=== PATIENT | female | born 1990 | race Caucasian/White ===

== ENCOUNTER 2022-02-15 21:46 | Emergency (ER) | payer OTHER, SELFPAY ==
--- NOTE | ~2022-02-15 | CT_ITS ---
EXAMINATION: CT brain wo con DATE: 02/15/2022 22:24 INDICATION: Head injury TECHNIQUE: Computed tomography (CT) of the head was performed without intravenous contrast. Sagittal and coronal reconstructions were performed. The mA was adjusted according to patient size. Iterative reconstruction technique was employed. The dose-length product was 529.67 mGy-cm. COMPARISON: None FINDINGS: No fracture. No acute intracranial hemorrhage, acute infarction or abnormal extra axial fluid collect ion. Ventricles are normal and symmetric. No mass/mass effect. The orbits, paranasal sinuses and mast oid air cells are normal. IMPRESSION: 1. Normal head CT. Reviewed, dictated and finalized at location A. IMPRESSION: 1. Normal head CT.
[2022-02-15 21:51] VITALS: BP 157/88; PULSE 94; RESP 16; TEMP 36.4; O2SAT 100
--- NOTE | 2022-02-15 21:51 | ED.HA ---
HPI - Headache General Chief Complaint: Headache Stated Complaint: Head injury Tues, h/A and nausea Time Seen by Provider: 02/15/22 21:51 History of Present Illness HPI Narrative: 31-year-old female presents the emergency room with complaints of headache for 3 days. Patient states 4 days ago she struck her head on the edge of shoulder. Did not experience any loss of consciousness, dizziness, headache or nausea at that time. Patient denies any somnolence or dizziness. Patient states on Thursday she developed a headache over her left eye that is photophobic and phonophobic, and is associated with nausea which has since resolved. States her abortive medicine is Excedrin Migraine Related Data Allergies Allergy/AdvReac Type Severity Reaction Status Date / Time No Known Allergies Allergy Verified 02/15/22 21:49 Review of Systems Review of Systems: CONSTITUTIONAL: Denies fever, chills, or sweats. EYES: Denies visual changes, redness, or discharge. ENT: Denies rhinorrhea, congestion, sore throat, or otalgia. CARDIOVASCULAR: Denies chest pain, palpitations, or edema. RESPIRATORY: Denies cough or dyspnea. GASTROINTESTINAL: Denies abdominal pain, nausea, vomiting, or diarrhea. GENITOURINARY: Denies dysuria or hematuria. SKIN: Denies rash or itching. MUSCULOSKELETAL: Denies back pain, joint pain, or myalgia. NEUROLOGIC: Reports headache PSYCHIATRIC: Denies anxiety or depression. Exam Narrative: GENERAL: Well-appearing, well-nourished, and in no acute distress. HEAD: Normocephalic, atraumatic. EYES: PERRLA and EOMI. ENT: Nares clear, no rhinorrhea or epistaxis. Mucous membranes moist. NECK: Supple. No adenopathy or masses. No carotid bruits or JVD CHEST: Clear to auscultation. No respiratory distress. No wheezes rales or rhonchi HEART: Regular rate and rhythm. No murmur heard. Normal peripheral pulses. EXTREMITIES: Normal range of motion. No edema. SKIN: Warm, dry, no rash. NEURO: No focal deficits. Alert and oriented x3. PSYCH: Normal mood and affect. Course Vital Signs Vital signs: Vital Signs Temperature 36.4 C 02/15/22 21:51 Pulse Rate 94 02/15/22 21:51 Respiratory Rate 16 02/15/22 21:51 Blood Pressure 157/88 H 02/15/22 21:51 Pulse Oximetry 100 02/15/22 21:51 Temperature 36.4 C 02/15/22 21:51 Pulse Rate 94 02/15/22 21:51 Respiratory Rate 16 02/15/22 21:51 Blood Pressure 157/88 H 02/15/22 21:51 Pulse Oximetry 100 02/15/22 21:51 MDM - Headache MDM Narrative Medical decision making narrative: 31-year-old female presents emergency room after hitting her head 4 days ago plastic shoulder, and then the following day developed a headache over her left eye. Patient was given 60 mg of Toradol patient responded well. CT brain showed no acute abnormalities. Patient likely experiencing a typical headache. Will refer patient back to Differential Diagnosis Differential diagnosis: Likely headache Discharge Plan Discharge Clinical Impression: Headache Qualifiers: Headache type: unspecified Headache chronicity pattern: acute headache Intractability: not intractable Qualified Code(s): R51.9 - Headache, unspecified Patient Disposition: Home, Self-Care Condition: Stable Instructions: Antibiotic Form, Acute Headache (ED) Follow-up/Referrals: PHYSICIAN,[employer] [Primary Care Provider] - Time of Disposition: 23:33
[2022-02-15] MEDS: KETOROLAC (*BKC) 60 MG/2 ML VIAL IM (22:07)
[2022-02-15 23:46] VITALS: RESP 16
== END 2022-02-15 23:55 | disposition home or self-care (01) ==
PROVIDERS: Emergency Provider Nurse Practitioner Family
DX: R51.9 Headache, unspecified (principal)
CPT/HCPCS: 70450; 96372; 99284; J1885